=== PATIENT | female | born 1980 | race Caucasian/White ===

== ENCOUNTER 2016-07-03 10:45 | Emergency (ER) | payer OTHER ==
[~2016-07-03 10:45] MED LIST: CYCLOBENZAPRINE10 MG PO; ENDOCET1 TA3 PO; NEURONTIN300 MG PO; PERCOCET1 TA2 PO; TRAMADOL HCL50 MG PO
--- NOTE | 2016-07-03 12:56 | DIAGNOSTIC IMAGING REPORT ---
PROCEDURE: CT ABDOMEN/PELVIS W/O CONTRAST INDICATION: Left flank pain, initial encounter TECHNIQUE: Noncontrast axial images were obtained of the entire abdomen and pelvis with sagittal and coronal reformations. COMPARISON: CT abdomen/pelvis 05/24/2016 and 11/08/2015. FINDINGS: ABDOMEN: 9 mm left renal pelvis calculus with mild hydronephrosis. There is also stable chronic thickening of the renal pelvis. There are two left and single punctate right renal nonobstructing calculi. Left basilar scarring. Normal heart size. Liver measures 21.5 cm with diffuse steatosis, unchanged. The gallbladder, pancreas, spleen, adrenal glands and abdominal aorta are unremarkable. Stool throughout the large bowel. PELVIS: Normal appendix. 2.8 cm right ovarian cyst. Uterus and bladder are normal. No inflammatory changes or free fluid. Moderate L5-S1 degenerative changes. IMPRESSION: 1. Slowly enlarging 9 mm left renal pelvis calculus with mild hydronephrosis. There is stable thickening of the renal pelvis which probably represents chronic inflammatory changes while neoplastic changes are less likely. However, the patient has had 5 CTs since 11/08/2015 from the same symptoms and urology consultation is recommended. 2. Bilateral punctate nonobstructing renal calculi 3. Hepatomegaly and steatosis 4. Obstipation 5. Results discussed with Dr. Linares All CT scans at this facility use dose modulation, iterative reconstruction, and/or weight-based dosing when appropriate to reduce radiation dose to as low as reasonably achievable.
--- NOTE | 2016-07-03 13:59 | ED NURSING NOTES ---
Clinical Report - Nurses [facility] [address] [place] [address] 07/03/2016 10:45 Patient: ROBE WEST *This is a preliminary document and is subject to change TRIAGE Triage time 11:11 Jul 03 2016. Acuity: LEVEL 4. 11:21 07/03/16. 11:13 07/03/16. 11:13 07/03/16. SEPSIS SCREEN: Sepsis Screen. Negative (no infection suspected/documented). MARCELO COMA SCORE: Marcelo Coma Scale: 15- eyes open spontaneously (4); best verbal response- oriented x 4 (5); best motor response- obeys commands (6). --11:21 Radha Patton R.N. 11:25 07/03/16. --11:25 Radha Patton R.N. 11:23 07/03/16. BP: 124/67 (regular adult cuff) taken on the left arm, while lying. HR: 110. RR: 18. O2 saturation: 98% on room air. Temp: 98.2 F. Pain level now: 3/10. Additional comments: when laying down pain is better, standing is worse. --11:25 Radha Patton R.N. Weight: 124.7 kg stated. Height/Length: 64 inches Per Patient. BMI: 47.2. --11:17 Radha Patton R.N. Medications Gabapentin Oral (Capsule 300 mg) 1 capsule, 3x a day. --11:16 Radha Patton R.N. Cyclobenzaprine HCl Oral (Tablet 7.5 mg) 2 tablets, 3x a day. --11:17 Radha Patton R.N. Lisinopril Oral (Tablet 10 mg) 1 tablet, daily. --11:17 Radha Patton R.N. Hydrochlorothiazide Oral (Tablet 12.5 mg) 1 tablet, daily. --11:17 Radha Patton R.N. Allergies Sulfa Antibiotics. --11:18 Radha Patton R.N. History Arrived by private vehicle. Historian: patient. Accompanied by friend. 11:07/03/16. ( Patient has been having increased pain starting last week, pain comes and goes and has gradually gotten worse over time, pain on left side radiates to front creating nausea, pain is positional). She has had moderate, intermittent, sharp flank pain with nausea. Last oral intake by patient was breakfast 1 hour ago. 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 Recently seen in a medical facility; treatment- pain medication. (patient already on pain meds for chronic back pain). PAST MEDICAL HX: Hypertension. Immunizations not up to date. SOCIAL HX: Never smoker. Occasional alcohol use; consumes two liquor weekly. Patient smells of ETOH in the emergency department. History of weekly drug use: marijuana. Recently used drugs days ago. FALL RISK ASSESSMENT: Fall risk assessment completed. No fall risk identified. NUTRITIONAL RISK ASSESSMENT: The nutritional risk assessment revealed no deficiencies. FUNCTIONAL ASSESSMENT: Functional assessment: no impairments noted. LEARNING NEEDS ASSESSMENT: The learning needs assessment revealed no barriers. SKIN INTEGRITY ASSESSMENT: Skin integrity risk assessment completed. No skin integrity risk identified. --11:21 Radha Patton R.N. PROBLEMS: Abdominal Muscle Strain. Obesity. Constipation. Abdominal Pain. Ureterolithiasis. Hypertension. Ovarian Cyst. Abscess. Degenerative Joint Disease. Back Pain. Lumbar Strain. Myofascial Strain. Muscle Strain, Upper Extremity. LNMP - Last Normal Menstrual Period. Immunizations. --11: aRdha Patton R.N. ADDITIONAL SURGERIES: . --11: Radha Patton R.N. Assessment 11:07/03/16. --11:21 Radha Patton R.N. Interventions 11:07/03/16. 11:07/03/16. ID band on patient. To treatment room. --11: Radha Patton R.N. PHYSICAL ASSESSMENT 11:07/03/16. Ambulatory to room. GENERAL / NEURO / PSYCH: Oriented X 4. Appears in pain. RESPIRATORY: Respirations not labored. CVS: Normal heart rate and rhythm. GI / : Guarding present. Bowel sounds within normal limits. No pain with urination. SKIN: Skin is warm. --11:23 Radha Patton R.N. NURSING PROGRESS NOTES 11:26 07/03/16. The plan of care for this patient has been created. Head of bed elevated. Reassurance given. Two patient identifiers checked. Call light placed in reach. Side rails up x 1. Brakes of bed on. Brakes of chair on. Patient ready for evaluation- chart flagged and ED physician notified. --11:26 Radha Patton R.N. 11:07/03/16. ( Patient was able to leave a urine sample). --11:26 Radha Patton R.N. 12:19 07/03/16. Patient informed about reason for wait and about plan of care. --12:19 Shorty Schwartz R.N. 12:19 07/03/16. Patient transported to CT by stretcher with tech. --12:19 Shorty Schwartz R.N. 12:31 07/03/16. Patient returned from CT by stretcher with tech. --12:31 Shorty Schwartz R.N. 13:20 07/03/16. --13:20 Radha Patton R.N. 13:17 07/03/16. BP: 138/69 (large adult cuff) taken on the left arm, while lying. HR: 100. RR: 18. O2 saturation: 100% on room air. Pain level now: 5/10. --13:20 Radha Patton R.N. 13:22 07/03/16. ( Patient requested ice water, physician was ok with this). --13:22 Radha Patton R.N. This report is not final
--- NOTE | 2016-07-03 13:59 | ED CLINICAL REPORT ---
Clinical Report - Physicians/Mid Levels [facility] [address] [place] [address] 07/03/2016 10:45 Patient: ROBE WEST Time Seen: 11:25 Jul 03 2016. Arrived- By private vehicle. Historian- patient. CPT: ER phys charges level 4 (#[id number]). HISTORY OF PRESENT ILLNESS Chief Complaint: FLANK PAIN. At its maximum, severity described as moderate. When seen in the E.D., severity described as moderate. Modifying factors- worsened by movement. Relieved by rest. It is described as "pain" and it is described as located in the left flank. 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 It has been intermittent. No nausea, loss of appetite, vomiting or diarrhea. Similar symptoms previously: None. Recent medical care: Not recently seen/assessed. REVIEW OF SYSTEMS No constipation, black stools, hematemesis, difficulty with urination or pain with urination. No urinary frequency, fever, sore throat, chest pain or difficulty breathing. No cough, joint pain, skin rash or chills. Denies current . The patient has had back pain. All systems otherwise negative, except as recorded above. PAST HISTORY Abdominal Muscle Strain. L5-S1 disc dz ; Neurosurgeon will not operate at this time. Obesity. Constipation. Abdominal Pain. Ureterolithiasis. Hypertension. Ovarian Cyst. Abscess. Degenerative Joint Disease. Back Pain. Lumbar Strain. Myofascial Strain. Muscle Strain, Upper Extremity. LNMP - Last Normal Menstrual Period. Immunizations. --11:13 Radha Patton R.N. ADDITIONAL SURGERIES: . Has not had urinary calculi. Medications: Hydrochlorothiazide Oral (Tablet 12.5 mg) 1 tablet, daily. Lisinopril Oral (Tablet 10 mg) 1 tablet, daily. Cyclobenzaprine HCl Oral (Tablet 7.5 mg) 2 tablets, 3x a day. Gabapentin Oral (Capsule 300 mg) 1 capsule, 3x a day. Allergies: Sulfa Antibiotics. SOCIAL HISTORY Never smoker. Alcohol use. History of drug use: marijuana. ADDITIONAL NOTES The nursing notes have been reviewed. PHYSICAL EXAM Vital Signs: 07/03/2016 11:23 BP: 124/67. HR: 110. RR: 18. O2 saturation: 98%. Temp: 98.2 F. Pain level now: 310. Appearance: Alert. Appears to be in pain. Patient in moderate distress. Eyes: Eyes normal inspection. ENT: Pharynx normal. Neck: Normal inspection. Neck supple. CVS: Normal heart rate and rhythm. Heart sounds normal. Pulses normal. Respiratory: No respiratory distress. Breath sounds normal. Chest nontender. Abdomen: Soft and nontender. Bowel sounds normal. Back: (Point tender over the left , low, lumbar soft tissue.). Skin: Skin warm. Normal skin color. No rash. Extremities: Extremities exhibit normal ROM. No lower extremity edema. Neuro: Oriented X 3. No motor deficit. No sensory deficit. Reflexes normal. LABS, X-RAYS, AND EKG Abdominal CT: 9 mm renal pelvis calculi with hydro that is new since April 2016. 5 Ct's in the past [address] performed without contrast. The study was independently viewed by me, interpreted by the radiologist and discussed with the radiologist. Laboratory Tests: UA-Culture if indicated: (JOHN: 07/03/2016 11:25) ( MsgRcvd 07/03/2016 11:48) Final results Test Result Flag Units (Reference) URINE COLOR YELLOW URINE APPEARANCE CLEAR URINE GLUCOSE NEGATIVE (NEGATIVE) URINE BILIRUBIN NEGATIVE (NEGATIVE) URINE KETONE NEGATIVE (NEGATIVE) URINE SPECIFIC GRAVITY 1.010 (1.010-1.030) URINE PH 6.5 (5.0-8.0) URINE PROTEIN TRACE (NEGATIVE) URINE UROBILINOGEN 0.2 EU/dL (0.2-1.0) URINE NITRITE NEGATIVE (NEGATIVE) URINE BLOOD 3+ (NEGATIVE) URINE LEUK ESTERASE NEGATIVE (NEGATIVE) URINE RBC 50-75 rbc/hpf (0-1) URINE WBC NONE SEEN wbc/hpf (0-1) URINE EPITHELIAL CELLS 0-1 EPI/hpf (0-5) URINE BACTERIA FEW (1+) (NONE SEEN) URINE COMMENT CULT NOT INDICATED URINE CULTURES ARE SET-UP BASED ON THE FOLLOWING CRITERIA:POSITIVE NITRITEPOSITIVE LEUKOCYTE ESTERASEGREATER THAN 10 WHITE BLOOD CELLSMODERATE (2+) OR GREATER BACTERIA Urine: (JOHN: 07/03/2016 11:25) ( MsgRcvd 07/03/2016 11:41) Final results Test Result Flag Units (Reference) URINE NEGATIVE Urine Drug Screen: (JOHN: 07/03/2016 11:25) ( MsgRcvd 07/03/2016 11:59) Final results Test Result Flag Units (Reference) AMPHETAMINE/METHAMPHETAMINE NEGATIVE (NEGATIVE) BARBITURATE NEGATIVE (NEGATIVE) BENZODIAZEPINE NEGATIVE (NEGATIVE) CANNABINOID NEGATIVE (NEGATIVE) COCAINE NEGATIVE (NEGATIVE) ECSTASY NEGATIVE (NEGATIVE) METHADONE NEGATIVE (NEGATIVE) OPIATE NEGATIVE (NEGATIVE) The urine drug screen is a qualitative screening test fordrug overdose and abuse. All screen results should beconsidered as presumptive.Drugs screened for are as follows:BenzodiazepinesCocaineAmphetamines/MetamphetaminesTHC (Tetrahydrocannabinol)OpiatesBarbituratesEcstasyMethadonePositive results are unconfirmed. For confirmation, notifythe lab for the specimen to be sent to the reference lab.All confirmations must be performed by a differentmethodology.The ingestion of natural herbal and plant productscontaining Ephedra/Ephedra metabolites can produce in urineone or more substances capable of cross reacting withamphetamine/methamphetamine immunoassays. These testsprovide a preliminary result only. A more specificalternative chemical method must be used to obtain aconfirmed analytical result. . PROGRESS AND PROCEDURES Course of Care: 13:44 07/03/16. discussed kidney stone with the patient. When I asked the patient if she had kidney stones before she stated this is her first kidney stone. She did not offer information that she had this looked at many times before by CAT scan and was scheduled to have a lithotripsy next week. Patient was very cryptic with her history for unclear reasons. Discussed the fact that she had 5 CT scans since October 2015 and that this is highly unhealthy for her due to radiation. Instructed her that she needs to tell all practitioners that she's had 5 CAT scans in the past to look at the stone. I believe the patient has chronic low back pain as the primary problem and is accepting the kidney dx for pain control of the back. Patient/family counseled. Disposition: Discharged. Condition: stable. CLINICAL IMPRESSION Chronic 9mm stone in left renal pelvis with new evidence of hydronephrosis. Low back pain. INSTRUCTIONS Prescription Medications: Hydrocodone/APAP 5mg/325mg: take 1 to 2 orally every 6 hours as needed for pain. Dispense fifteen (15). No refills. Zofran (orally disintegrating tablets) 4 mg: take 1 orally every 6 hours as needed for nausea. Dispense ten (10). No refill. Substitution is permissible. Follow-up: Follow up with your doctor Friday in six days as scheduled. Understanding of the discharge instructions verbalized by patient. (Electronically signed by Rohan Linares MD 07/04/2016 12:58)
--- NOTE | 2016-07-03 13:59 | ED ORDER SUMMARY ---
..... Patient: ROBE WEST OrderSheet [facility] VisitID: [id number] [address] [place] [address] 35y, F Registration Date/Time: 07/03/2016 ORDER SHEET Weight: 124.7 kg (stated) Allergies: Sulfa Antibiotics GENERAL ORDERS: UA-Culture if indicated Urgent (11:30 07/03/2016 Scotty ANTHONY) (11:32 Gaby R.N.) Urine Urgent (11:30 07/03/2016 Scotty ANTHONY) (11:32 Gaby Ahumada.N.) Urine Drug Screen Urgent (11:30 07/03/2016 Scotty ANTHONY) (11:32 Gaby Ahumada.N.) CT Abd/Pel wo Cont Urgent (12:16 07/03/2016 Scotty ANTHONY) (Ack 12:19 Chinedu) (12:46 Lane Ahumada.N.) MEDICATION ORDERS: IV FLUIDS: ORDER SHEET NOTES: [Electronically signed by Radha Patton R.N. (14:17 07/03/2016)] [Electronically signed by Rohan Linares MD (12:58 07/04/2016)] [Electronically locked/signed by Radha Patton R.N. (14:17 07/03/2016)]
--- NOTE | 2016-07-03 13:59 | ED ORDER SUMMARY ---
..... Patient: ROBE WEST OrderSheet [facility] VisitID: [id number] [address] [place] [address] 35y, F Registration Date/Time: 07/03/2016 ORDER SHEET Weight: 124.7 kg (stated) Allergies: Sulfa Antibiotics GENERAL ORDERS: UA-Culture if indicated Urgent (11:30 07/03/2016 Scotty ANTHONY) (11:32 Gaby R.N.) Urine Urgent (11:30 07/03/2016 Scotty ANTHONY) (11:32 Gaby Ahumada.N.) Urine Drug Screen Urgent (11:30 07/03/2016 Scotty ANTHONY) (11:32 Gaby Ahumada.N.) CT Abd/Pel wo Cont Urgent (12:16 07/03/2016 Scotty ANTHONY) (Ack 12:19 Chinedu) (12:46 Lane Ahumada.N.) MEDICATION ORDERS: IV FLUIDS: ORDER SHEET NOTES: [Electronically signed by Radha Patton R.N. (14:17 07/03/2016)] [Electronically signed by Rohan Linares MD (12:58 07/04/2016)] [Electronically locked/signed by Radha Patton R.N. (14:17 07/03/2016)]
--- NOTE | 2016-07-03 13:59 | ED NURSING NOTES ---
Clinical Report - Nurses [facility] [address] [place] [address] 07/03/2016 10:45 Patient: ROBE WEST *This is a preliminary document and is subject to change TRIAGE Triage time 11:11 Jul 03 2016. Acuity: LEVEL 4. 11:21 07/03/16. 11:13 07/03/16. 11:13 07/03/16. SEPSIS SCREEN: Sepsis Screen. Negative (no infection suspected/documented). MARCELO COMA SCORE: Marcelo Coma Scale: 15- eyes open spontaneously (4); best verbal response- oriented x 4 (5); best motor response- obeys commands (6). --11:21 Radha Patton R.N. 11:25 07/03/16. --11:25 Radha Patton R.N. 11:23 07/03/16. BP: 124/67 (regular adult cuff) taken on the left arm, while lying. HR: 110. RR: 18. O2 saturation: 98% on room air. Temp: 98.2 F. Pain level now: 3/10. Additional comments: when laying down pain is better, standing is worse. --11:25 Radha Patton R.N. Weight: 124.7 kg stated. Height/Length: 64 inches Per Patient. BMI: 47.2. --11:17 Radha Patton R.N. Medications Gabapentin Oral (Capsule 300 mg) 1 capsule, 3x a day. --11:16 Radha Patton R.N. Cyclobenzaprine HCl Oral (Tablet 7.5 mg) 2 tablets, 3x a day. --11:17 Radha Patton R.N. Lisinopril Oral (Tablet 10 mg) 1 tablet, daily. --11:17 Radha Patton R.N. Hydrochlorothiazide Oral (Tablet 12.5 mg) 1 tablet, daily. --11:17 Radha Patton R.N. Allergies Sulfa Antibiotics. --11:18 Radha Patton R.N. History Arrived by private vehicle. Historian: patient. Accompanied by friend. 11:07/03/16. ( Patient has been having increased pain starting last week, pain comes and goes and has gradually gotten worse over time, pain on left side radiates to front creating nausea, pain is positional). She has had moderate, intermittent, sharp flank pain with nausea. Last oral intake by patient was breakfast 1 hour ago. 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 Recently seen in a medical facility; treatment- pain medication. (patient already on pain meds for chronic back pain). PAST MEDICAL HX: Hypertension. Immunizations not up to date. SOCIAL HX: Never smoker. Occasional alcohol use; consumes two liquor weekly. Patient smells of ETOH in the emergency department. History of weekly drug use: marijuana. Recently used drugs days ago. FALL RISK ASSESSMENT: Fall risk assessment completed. No fall risk identified. NUTRITIONAL RISK ASSESSMENT: The nutritional risk assessment revealed no deficiencies. FUNCTIONAL ASSESSMENT: Functional assessment: no impairments noted. LEARNING NEEDS ASSESSMENT: The learning needs assessment revealed no barriers. SKIN INTEGRITY ASSESSMENT: Skin integrity risk assessment completed. No skin integrity risk identified. --11:21 Radha Patton R.N. PROBLEMS: Abdominal Muscle Strain. Obesity. Constipation. Abdominal Pain. Ureterolithiasis. Hypertension. Ovarian Cyst. Abscess. Degenerative Joint Disease. Back Pain. Lumbar Strain. Myofascial Strain. Muscle Strain, Upper Extremity. LNMP - Last Normal Menstrual Period. Immunizations. --11: Radha Patton R.N. ADDITIONAL SURGERIES: . --11: Radha Patton R.N. Assessment 11:07/03/16. --11:21 Radha Patton R.N. Interventions 11:07/03/16. 11:07/03/16. ID band on patient. To treatment room. --11: Radha Patton R.N. PHYSICAL ASSESSMENT 11:07/03/16. Ambulatory to room. GENERAL / NEURO / PSYCH: Oriented X 4. Appears in pain. RESPIRATORY: Respirations not labored. CVS: Normal heart rate and rhythm. GI / : Guarding present. Bowel sounds within normal limits. No pain with urination. SKIN: Skin is warm. --11:23 Radha Patton R.N. NURSING PROGRESS NOTES 11:26 07/03/16. The plan of care for this patient has been created. Head of bed elevated. Reassurance given. Two patient identifiers checked. Call light placed in reach. Side rails up x 1. Brakes of bed on. Brakes of chair on. Patient ready for evaluation- chart flagged and ED physician notified. --11:26 Radha Patton R.N. 11:07/03/16. ( Patient was able to leave a urine sample). --11:26 Radha Patton R.N. 12:19 07/03/16. Patient informed about reason for wait and about plan of care. --12:19 Shorty Schwartz R.N. 12:19 07/03/16. Patient transported to CT by stretcher with tech. --12:19 Shorty Schwartz R.N. 12:31 07/03/16. Patient returned from CT by stretcher with tech. --12:31 Shorty Schwartz R.N. 13:20 07/03/16. --13:20 Radha Patton R.N. 13:17 07/03/16. BP: 138/69 (large adult cuff) taken on the left arm, while lying. HR: 100. RR: 18. O2 saturation: 100% on room air. Pain level now: 5/10. --13:20 Radha Patton R.N. 13:22 07/03/16. ( Patient requested ice water, physician was ok with this). --13:22 Radha Patton R.N. This report is not final
--- NOTE | 2016-07-03 13:59 | ED CLINICAL REPORT ---
Clinical Report - Physicians/Mid Levels [facility] [address] [place] [address] 07/03/2016 10:45 Patient: ROBE WEST Time Seen: 11:25 Jul 03 2016. Arrived- By private vehicle. Historian- patient. CPT: ER phys charges level 4 (#[id number]). HISTORY OF PRESENT ILLNESS Chief Complaint: FLANK PAIN. At its maximum, severity described as moderate. When seen in the E.D., severity described as moderate. Modifying factors- worsened by movement. Relieved by rest. It is described as "pain" and it is described as located in the left flank. This started about 1 weeks [employer] and is still present (worse 2 days [employer]). It has been intermittent. No nausea, loss of appetite, vomiting or diarrhea. Similar symptoms previously: None. Recent medical care: Not recently seen/assessed. REVIEW OF SYSTEMS No constipation, black stools, hematemesis, difficulty with urination or pain with urination. No urinary frequency, fever, sore throat, chest pain or difficulty breathing. No cough, joint pain, skin rash or chills. Denies current . The patient has had back pain. All systems otherwise negative, except as recorded above. PAST HISTORY Abdominal Muscle Strain. L5-S1 disc dz ; Neurosurgeon will not operate at this time. Obesity. Constipation. Abdominal Pain. Ureterolithiasis. Hypertension. Ovarian Cyst. Abscess. Degenerative Joint Disease. Back Pain. Lumbar Strain. Myofascial Strain. Muscle Strain, Upper Extremity. LNMP - Last Normal Menstrual Period. Immunizations. --11:13 Radha Patton R.N. ADDITIONAL SURGERIES: . Has not had urinary calculi. Medications: Hydrochlorothiazide Oral (Tablet 12.5 mg) 1 tablet, daily. Lisinopril Oral (Tablet 10 mg) 1 tablet, daily. Cyclobenzaprine HCl Oral (Tablet 7.5 mg) 2 tablets, 3x a day. Gabapentin Oral (Capsule 300 mg) 1 capsule, 3x a day. Allergies: Sulfa Antibiotics. SOCIAL HISTORY Never smoker. Alcohol use. History of drug use: marijuana. ADDITIONAL NOTES The nursing notes have been reviewed. PHYSICAL EXAM Vital Signs: 07/03/2016 11:23 BP: 124/67. HR: 110. RR: 18. O2 saturation: 98%. Temp: 98.2 F. Pain level now: 310. Appearance: Alert. Appears to be in pain. Patient in moderate distress. Eyes: Eyes normal inspection. ENT: Pharynx normal. Neck: Normal inspection. Neck supple. CVS: Normal heart rate and rhythm. Heart sounds normal. Pulses normal. Respiratory: No respiratory distress. Breath sounds normal. Chest nontender. Abdomen: Soft and nontender. Bowel sounds normal. Back: (Point tender over the left , low, lumbar soft tissue.). Skin: Skin warm. Normal skin color. No rash. Extremities: Extremities exhibit normal ROM. No lower extremity edema. Neuro: Oriented X 3. No motor deficit. No sensory deficit. Reflexes normal. LABS, X-RAYS, AND EKG Abdominal CT: 9 mm renal pelvis calculi with hydro that is new since April 2016. 5 Ct's in the past [address] performed without contrast. The study was independently viewed by me, interpreted by the radiologist and discussed with the radiologist. Laboratory Tests: UA-Culture if indicated: (JOHN: 07/03/2016 11:25) ( MsgRcvd 07/03/2016 11:48) Final results Test Result Flag Units (Reference) URINE COLOR YELLOW URINE APPEARANCE CLEAR URINE GLUCOSE NEGATIVE (NEGATIVE) URINE BILIRUBIN NEGATIVE (NEGATIVE) URINE KETONE NEGATIVE (NEGATIVE) URINE SPECIFIC GRAVITY 1.010 (1.010-1.030) URINE PH 6.5 (5.0-8.0) URINE PROTEIN TRACE (NEGATIVE) URINE UROBILINOGEN 0.2 EU/dL (0.2-1.0) URINE NITRITE NEGATIVE (NEGATIVE) URINE BLOOD 3+ (NEGATIVE) URINE LEUK ESTERASE NEGATIVE (NEGATIVE) URINE RBC 50-75 rbc/hpf (0-1) URINE WBC NONE SEEN wbc/hpf (0-1) URINE EPITHELIAL CELLS 0-1 EPI/hpf (0-5) URINE BACTERIA FEW (1+) (NONE SEEN) URINE COMMENT CULT NOT INDICATED URINE CULTURES ARE SET-UP BASED ON THE FOLLOWING CRITERIA:POSITIVE NITRITEPOSITIVE LEUKOCYTE ESTERASEGREATER THAN 10 WHITE BLOOD CELLSMODERATE (2+) OR GREATER BACTERIA Urine: (JOHN: 07/03/2016 11:25) ( MsgRcvd 07/03/2016 11:41) Final results Test Result Flag Units (Reference) URINE NEGATIVE Urine Drug Screen: (JOHN: 07/03/2016 11:25) ( MsgRcvd 07/03/2016 11:59) Final results Test Result Flag Units (Reference) AMPHETAMINE/METHAMPHETAMINE NEGATIVE (NEGATIVE) BARBITURATE NEGATIVE (NEGATIVE) BENZODIAZEPINE NEGATIVE (NEGATIVE) CANNABINOID NEGATIVE (NEGATIVE) COCAINE NEGATIVE (NEGATIVE) ECSTASY NEGATIVE (NEGATIVE) METHADONE NEGATIVE (NEGATIVE) OPIATE NEGATIVE (NEGATIVE) The urine drug screen is a qualitative screening test fordrug overdose and abuse. All screen results should beconsidered as presumptive.Drugs screened for are as follows:BenzodiazepinesCocaineAmphetamines/MetamphetaminesTHC (Tetrahydrocannabinol)OpiatesBarbituratesEcstasyMethadonePositive results are unconfirmed. For confirmation, notifythe lab for the specimen to be sent to the reference lab.All confirmations must be performed by a differentmethodology.The ingestion of natural herbal and plant productscontaining Ephedra/Ephedra metabolites can produce in urineone or more substances capable of cross reacting withamphetamine/methamphetamine immunoassays. These testsprovide a preliminary result only. A more specificalternative chemical method must be used to obtain aconfirmed analytical result. . PROGRESS AND PROCEDURES Course of Care: 13:44 07/03/16. discussed kidney stone with the patient. When I asked the patient if she had kidney stones before she stated this is her first kidney stone. She did not offer information that she had this looked at many times before by CAT scan and was scheduled to have a lithotripsy next week. Patient was very cryptic with her history for unclear reasons. Discussed the fact that she had 5 CT scans since October 2015 and that this is highly unhealthy for her due to radiation. Instructed her that she needs to tell all practitioners that she's had 5 CAT scans in the past to look at the stone. I believe the patient has chronic low back pain as the primary problem and is accepting the kidney dx for pain control of the back. Patient/family counseled. Disposition: Discharged. Condition: stable. CLINICAL IMPRESSION Chronic 9mm stone in left renal pelvis with new evidence of hydronephrosis. Low back pain. INSTRUCTIONS Prescription Medications: Hydrocodone/APAP 5mg/325mg: take 1 to 2 orally every 6 hours as needed for pain. Dispense fifteen (15). No refills. Zofran (orally disintegrating tablets) 4 mg: take 1 orally every 6 hours as needed for nausea. Dispense ten (10). No refill. Substitution is permissible. Follow-up: Follow up with your doctor Friday in six days as scheduled. Understanding of the discharge instructions verbalized by patient. (Electronically signed by Rohan Linares MD 07/04/2016 12:58)
--- NOTE | 2016-07-04 12:58 | ED MAR SUMMARY ---
..... Medication Administration Record [facility] [address] [place], [place] [id number] Patient: ROBE WEST Visit ID: [id number] 35y, F Weight: 124.7 kg Height/Length: 64 in BMI: 47.2 ALLERGIES: Sulfa Antibiotics
--- NOTE | 2016-07-04 12:58 | ED DISCHARGE INSTRUCTIONS ---
Patient: ROBE WEST General Instructions [facility] VisitID: [id number] [place] [address] 35y, F Registration Date/Time: 07/03/2016 Chronic 9mm stone in left renal pelvis with new evidence of hydronephrosis. Low back pain. INSTRUCTIONS Prescription Medications: Hydrocodone/APAP 5mg/325mg: take 1 to 2 orally every 6 hours as needed for pain. Dispense fifteen (15). No refills. Zofran (orally disintegrating tablets) 4 mg: take 1 orally every 6 hours as needed for nausea. Dispense ten (10). No refill. Substitution is permissible. Follow-up: Follow up with your doctor Friday in six days as scheduled. Understanding of the discharge instructions verbalized by patient. ADDITIONAL INFORMATION Ondansetron Oral disintegrating tablet What is this medicine? ONDANSETRON (on DAISY se juan) is used to treat nausea and vomiting caused by chemotherapy. It is also used to prevent or treat nausea and vomiting after surgery. How should I use this medicine? These tablets are made to dissolve in the mouth. Do not try to push the tablet through the foil backing. With dry hands, peel away the foil backing and gently remove the tablet. Place the tablet in the mouth and allow it to dissolve, then swallow. While you may take these tablets with water, it is not necessary to do so. Talk to your diamond broker regarding the use of this medicine in children. Special care may be needed. What side effects may I notice from receiving this medicine? Side effects that you should report to your doctor or health clinical care coordinator as soon as possible: allergic reactions like skin rash, itching or hives, swelling of the face, lips, or tongue breathing problems dizziness fast or irregular heartbeat feeling faint or lightheaded, falls fever and chills swelling of the hands and feet tightness in the chest Side effects that usually do not require medical attention (report to your doctor or health clinical care coordinator if they continue or are bothersome): constipation or diarrhea headache What may interact with this medicine? Do not take this medicine with any of the following medications: -apomorphine -cisapride -dofetilide -dronedarone -pimozide -thioridazine -ziprasidone This medicine may also interact with the following medications: -carbamazepine -phenytoin -rifampicin -tramadol -other medicines that prolong the QT interval (cause an abnormal heart rhythm) What if I miss a dose? If you miss a dose, take it as soon as you can. If it is almost time for your next dose, take only that dose. Do not take double or extra doses. Where should I keep my medicine? Keep out of the reach of children. Store between 2 and 30 degrees C (36 and 86 degrees F). Throw away any unused medicine after the expiration date. What should I tell my health care provider before I take this medicine? They need to know if you have any of these conditions: heart disease history of irregular heartbeat liver disease low levels of magnesium or potassium in the blood an unusual or allergic reaction to ondansetron, granisetron, other medicines, foods, dyes, or preservatives or trying to get breast-feeding What should I watch for while using this medicine? Check with your doctor or health clinical care coordinator as soon as you can if you have any sign of an allergic reaction. You have been given the following additional information: Ondansetron Oral disintegrating tablet (Electronically signed by Rohan Linares MD 07/04/2016 12:58)
--- NOTE | 2016-07-04 12:58 | ED MAR SUMMARY ---
..... Medication Administration Record [facility] [address] [place], [place] [id number] Patient: ROBE WEST Visit ID: [id number] 35y, F Weight: 124.7 kg Height/Length: 64 in BMI: 47.2 ALLERGIES: Sulfa Antibiotics
--- NOTE | 2016-07-04 12:58 | ED DISCHARGE INSTRUCTIONS ---
Patient: ROBE WEST General Instructions [facility] VisitID: [id number] [place] [address] 35y, F Registration Date/Time: 07/03/2016 Chronic 9mm stone in left renal pelvis with new evidence of hydronephrosis. Low back pain. INSTRUCTIONS Prescription Medications: Hydrocodone/APAP 5mg/325mg: take 1 to 2 orally every 6 hours as needed for pain. Dispense fifteen (15). No refills. Zofran (orally disintegrating tablets) 4 mg: take 1 orally every 6 hours as needed for nausea. Dispense ten (10). No refill. Substitution is permissible. Follow-up: Follow up with your doctor Friday in six days as scheduled. Understanding of the discharge instructions verbalized by patient. ADDITIONAL INFORMATION Ondansetron Oral disintegrating tablet What is this medicine? ONDANSETRON (on DAISY se juan) is used to treat nausea and vomiting caused by chemotherapy. It is also used to prevent or treat nausea and vomiting after surgery. How should I use this medicine? These tablets are made to dissolve in the mouth. Do not try to push the tablet through the foil backing. With dry hands, peel away the foil backing and gently remove the tablet. Place the tablet in the mouth and allow it to dissolve, then swallow. While you may take these tablets with water, it is not necessary to do so. Talk to your ladle patcher regarding the use of this medicine in children. Special care may be needed. What side effects may I notice from receiving this medicine? Side effects that you should report to your doctor or health career services coordinator as soon as possible: allergic reactions like skin rash, itching or hives, swelling of the face, lips, or tongue breathing problems dizziness fast or irregular heartbeat feeling faint or lightheaded, falls fever and chills swelling of the hands and feet tightness in the chest Side effects that usually do not require medical attention (report to your doctor or health career services coordinator if they continue or are bothersome): constipation or diarrhea headache What may interact with this medicine? Do not take this medicine with any of the following medications: -apomorphine -cisapride -dofetilide -dronedarone -pimozide -thioridazine -ziprasidone This medicine may also interact with the following medications: -carbamazepine -phenytoin -rifampicin -tramadol -other medicines that prolong the QT interval (cause an abnormal heart rhythm) What if I miss a dose? If you miss a dose, take it as soon as you can. If it is almost time for your next dose, take only that dose. Do not take double or extra doses. Where should I keep my medicine? Keep out of the reach of children. Store between 2 and 30 degrees C (36 and 86 degrees F). Throw away any unused medicine after the expiration date. What should I tell my health care provider before I take this medicine? They need to know if you have any of these conditions: heart disease history of irregular heartbeat liver disease low levels of magnesium or potassium in the blood an unusual or allergic reaction to ondansetron, granisetron, other medicines, foods, dyes, or preservatives or trying to get breast-feeding What should I watch for while using this medicine? Check with your doctor or health career services coordinator as soon as you can if you have any sign of an allergic reaction. You have been given the following additional information: Ondansetron Oral disintegrating tablet (Electronically signed by Rohan Linares MD 07/04/2016 12:58)
--- NOTE | 2016-07-04 12:58 | ED MED RECONCILIATION SUMMARY ---
Patient: ROBE WEST Medication Reconciliation Report [facility] VisitID: [id number] [place] [address] 35y, F Registration Date/Time: 07/03/2016 Weight: 124.7 kg Height/Length: 64 in. BMI: 47.2 ALLERGIES: Sulfa Antibiotics The patient's Home Medications are listed below: THE FOLLOWING MEDICATIONS NEED TO BE RECONCILED: Cyclobenzaprine HCl Oral (7.5 mg) 2 tablets, 3x a day Gabapentin Oral (300 mg) 1 capsule, 3x a day Hydrochlorothiazide Oral (12.5 mg) 1 tablet, daily Lisinopril Oral (10 mg) 1 tablet, daily The source(s) of the original Home Medication information: Not obtained. The following Medications were given to the patient in the Emergency Department: None. The following Medications were prescribed to the patient: Hydrocodone/APAP 5mg/325mg: take 1 to 2 orally every 6 hours as needed for pain. Dispense fifteen (15). No refills. -- Rohan Linares MD Zofran (orally disintegrating tablets) 4 mg: take 1 orally every 6 hours as needed for nausea. Dispense ten (10). No refill. Substitution is permissible. -- Rohan Linares MD
--- NOTE | 2016-07-04 12:58 | ED MED RECONCILIATION SUMMARY ---
Patient: ROBE WEST Medication Reconciliation Report [facility] VisitID: [id number] [place] [address] 35y, F Registration Date/Time: 07/03/2016 Weight: 124.7 kg Height/Length: 64 in. BMI: 47.2 ALLERGIES: Sulfa Antibiotics The patient's Home Medications are listed below: THE FOLLOWING MEDICATIONS NEED TO BE RECONCILED: Cyclobenzaprine HCl Oral (7.5 mg) 2 tablets, 3x a day Gabapentin Oral (300 mg) 1 capsule, 3x a day Hydrochlorothiazide Oral (12.5 mg) 1 tablet, daily Lisinopril Oral (10 mg) 1 tablet, daily The source(s) of the original Home Medication information: Not obtained. The following Medications were given to the patient in the Emergency Department: None. The following Medications were prescribed to the patient: Hydrocodone/APAP 5mg/325mg: take 1 to 2 orally every 6 hours as needed for pain. Dispense fifteen (15). No refills. -- Rohan Linares MD Zofran (orally disintegrating tablets) 4 mg: take 1 orally every 6 hours as needed for nausea. Dispense ten (10). No refill. Substitution is permissible. -- Rohan Linares MD
== END 2016-07-03 14:13 | disposition home or self-care (01) ==
LOC: ED SRH 10:45
DX: N13.2 Hydronephrosis with renal and ureteral calculous obstruction (principal); M54.5 Low back pain; G89.29 Other chronic pain; I10 Essential (primary) hypertension; Z79.899 Other long term (current) drug therapy; Z88.2 Allergy status to sulfonamides
CPT/HCPCS: 90004; 92760; 92761; 92762; 92763; 92764; 92765; 92766; 92767; 93070

== ENCOUNTER 2016-07-25 17:51 | Outpatient (CLI) | payer OTHER | END 2016-07-25 23:00 | LOC: LAB SRH 17:51 | DX: R31.21 Asymptomatic microscopic hematuria (principal) | CPT/HCPCS: 90047; 90074; 95059 ==